=== PATIENT | female | born 1955 | race African-American/Black ===

== ENCOUNTER 2024-11-25 08:40 | Observation (INO) | payer OTHER ==
[2024-11-19 09:44] VITALS: BP 145/76; PULSE 77; RESP 17; TEMP 97.3
[2024-11-19 09:46] LABS: IMMATURE GRANULOCYTE ABSOLUTE 0.00 K/uL (0-1); NUCLEATED RED BLOOD CELLS 0.0 % (0.0-0.19); PLATELET COUNT (AUTO) 291 K/uL (130-400); RED BLOOD CELL COUNT(AUTO) 4.71 MIL/uL (4.00-5.50); RED CELL DISTRIBUTION WIDTH 13.8 % (11.0-15.5); WHITE BLOOD COUNT (AUTO) 4.0 K/uL (4.8-10.8)
[2024-11-19 10:08] LABS: APPEARANCE,URINE CLEAR (CLEAR); GLUCOSE, URINE (UA) NEGATIVE (NEGATIVE); LEUKOCYTE ESTERASE ,URINE NEGATIVE Leu/uL (NEGATIVE); NITRATE,URINE NEGATIVE (NEGATIVE); OCCULT BLOOD,URINE NEGATIVE (NEGATIVE)
[2024-11-19 10:10] LABS: ADD UA MICROSCOPIC NO
[2024-11-25] VITALS (24 sets, daily range): BP systolic 99–150; BP diastolic 44–76; PULSE 58–96; RESP 13–20; TEMP 97.5–98.5; O2SAT 92
[~2024-11-25] VITALS: Ht 170.2 cm; Wt 88.5 kg
[~2024-11-25 08:40] MED LIST: AMLO-915 PO; LOSA100T59 PO; NAPR220T57 PO; TYLENOL ARTHRITIS PO
[2024-11-25] MEDS: LACTATED RINGERS 1000ML 1,000 ML IV ONE (10:42)
[2024-11-25] MEDS: GABAPENTIN 300 MG CAPSULE ONE (11:48)
[2024-11-25] MEDS: FAMOTIDINE 20MG VIAL IV ONE (11:49)
[2024-11-25] MEDS ORDERED: LIDOCAINE PF 100MG/5ML (2%) SYRINGE 5ML ONE (12:00)
[2024-11-25] MEDS ORDERED: TRANEXAMIC ACID 1000MG/10ML ONE (13:07)
[2024-11-25] MEDS ORDERED: VANCOMYCIN 500MG+NS 100ML 100 ML IV ONE (13:07)
[2024-11-25] MEDS ORDERED: GLYCOPYRROLATE 0.2 MG/ML 5 ML VIAL ONE (15:53)
[2024-11-25] MEDS ORDERED: NEOSTIGMINE METHYLSULFATE 1MG/ML IV ONE (15:53)
[2024-11-25] MEDS ORDERED: CALCIUM CARB 500MG PO PRN (16:30)
[2024-11-25] MEDS ORDERED: PoTASSium chl 10% ELIXIR 20MEQ 20 MEQ/15 ML UDCUP PO PRN (16:30)
[2024-11-25] MEDS: 0.9%NACL 1000ML 1,000 ML IV SCH (16:30)
[2024-11-25] MEDS ORDERED: FERROUS FUMARATE 324 MG TABLET PO PRN (16:30)
[2024-11-25] MEDS ORDERED: PoTASSium chloRIDE 20MEQ ER 20 MEQ ERTAB PO PRN (16:30)
[2024-11-25] MEDS ORDERED: HYDROcodone/APAP 5/325 1 TAB TABLET PO PRN (16:30)
--- NOTE | 2024-11-25 16:35 | OP ---
Operative Note: DATE OF PROCEDURE: 11/25/24 SURGEON: ASHLEY BAHENA MD PACKAGING TECHNICIAN: [Mariano Blevins CFA] ANESTHESIA: [General anesthesia plus regional block] ANESTHESIOLOGIST/TURPENTINE FARMER: [Torin Palomino TURPENTINE FARMER] PREOPERATIVE DIAGNOSIS: [Left knee osteoarthritis] POSTOPERATIVE DIAGNOSIS: [Left knee osteoarthritis] IMPLANTS: [BIOMET VANGUARD. Femur 62.5 left PS. Tibia 71 fixed cruciate. Patella size 31 x 8 asymmetric. Tibial liner size 71/75 X 10 PS] PROCEDURE: [Left total knee arthroplasty] ESTIMATED BLOOD LOSS: [100 mL] INDICATIONS: [69-year-old female with history of pain to the left knee secondary to osteoarthritis that has a longer responded to conservative treatment. The patient is brought to the operating room for a total knee arthroplasty. Procedure understood, risks, benefits and possible complications and agreed signed the consent form.] DESCRIPTION OF PROCEDURE: [After adequate general anesthesia was achieved and regional block obtained the left lower extremity was prepped and draped in the usual manner previous placement of the tourniquet in the proximal thigh. The extremity was then elevated and exsanguinated with an Esmarch bandage and the tourniquet inflated to 250 mmHg the Esmarch band been then removed. With the knee in flexion a longitudinal incision was then made in the anterior aspect through the skin followed by dissection of the subcutaneous tissue. A paramedian approach was then made with the Bovie cautery cutting through the quadriceps tendon, medial patellar retinaculum and patellar tendon retinaculum. The retropatellar tendon fat was then excised and the soft tissue elements of the tibia were elevated subperiosteally and retractors were applied medially and laterally . The anterior and posterior cruciate ligaments were resected. With the use of a drill a starting hole was made in the distal femur entering the intramedullary canal and then after removal of the drill an intramedullary guide was inserted with a 5 degree valgus block that touched the distal femur and to this the distal femoral cutting guide was then applied anteriorly and was secured to the distal femur with the use of pins. The intramedullary guide was then removed and with the use of the oscillating saw we proceeded to resect the distal femur removing the fragments and the guide. The femoral sizer was then applied distally and drill holes were made removing the sizer and the 4-in-1 cutting block was then inserted and the anterior, posterior and chamfer cuts were made removing the fragments and the block. The PS cutting guide was then inserted and the intercondylar cut was made removing the fragment and the guide. The posterior cruciate ligament retractor was then inserted posterior to the tibia and this was brought forward proceeding then to apply the external tibial alignment guide and secured the proximal cutting guide to the tibia with the use of pins. With the use of the oscillating saw the proximal cut to the tibia tibia was made. The bone fragment was removed and the trial tibia plate was chosen. At this point the menisci were removed sharply and with the use of the curved osteotome the posterior osteophytes of the femur were removed. The trial components were then inserted at the femur and tibia with a trial tibial liner bringing the knee into extension noticing that the patient had a very stable knee in flexion, extension and with valgus and varus stress. The knee was maintained in extension and the patella was then addressed proceeding to measure its thickness and then with the use of the oscillating saw we removed eight mm from the articular surface and restored the height with application of a trial component after 3 peg holes were made. The patellofemoral ligament was removed and then the patellofemoral tracking was checked noticing to be normal. At this moment all the components were removed, the tibia after the metaphyseal defect was created and while cement was being mixed on the back table we proceeded to irrigate the joint with antibiotic solution and then cover the entry to the femoral canal with a bone plug. Once the cement was ready we proceeded to apply it first to the tibia surface inserting the final component and then to the femoral surface and inserted the final component removing the excess cement and then applying a trial liner bringing the knee into extension for compression. Then we proceeded to irrigate the patella surface and dried it applying then bone cement and the final patellar component was inserted and was secured with application of a clamp. The joint was irrigated with a warm diluted Betadine solution while the cement dried followed by irrigation with antibiotic solution. The trial liner was removed as well as the patellar clamp and we proceeded then to irrigate the posterior aspect of the joint to remove all the remaining debris and the final tibial liner was inserted and locked against the tibia. The range of motion was checked and noticed to be adequate with full extension and flexion, no laxity in valgus or varus stress and with adequate patellofemoral tracking. The patient had no anterior or posterior drawer. The tourniquet was then deflated and this was followed by hemostasis and the wound was then closed with approximation of the quadriceps tendon, patellar retinaculum and patellar tendon retinaculum with #1 Vicryl close stitches alternating with #1 Ethibond stitches, and closure of the subcutaneous tissue with 2-0 Monocryl inverted stitches and the skin was closed with 3-0 Monocryl subcuticularly. The wound was covered with a suction dressing followed by application of an Kane bandage for compression and the drapes were then removed transferring the patient to the hospital bed and taken to recovery room for follow-up by anesthesia. There were no complications during the procedure.] ASHLEY BAHENA MD Nov 25, 2024 16:35
[2024-11-25] MEDS: TRANEXAMIC ACID 1000MG/10ML ONE (17:14)
--- NOTE | 2024-11-25 18:00 | NUR ---
PATENT ARRIVED FROM PACU REPORT GIVEN TO MORRO HOWELL BY GIA COHN. PATIENT IS ALERT AND ORIENT, DENIES ANY DISCOMFORT AT THIS TIME. CALL LIGHT WITHIN REACH, BED AT LOWEST POSITION. PHYSICAL THERAPY AWARE OF PATIENT.
[2024-11-25] MEDS: FAMOTIDINE 20MG TAB PO SCH (20:33)
[2024-11-25] MEDS: HYDROcodone/APAP 5/325 1 TAB TABLET PO PRN (20:34)
[2024-11-26] VITALS (7 sets, daily range): BP systolic 115–143; BP diastolic 55–78; PULSE 71–92; RESP 18–20; TEMP 97.8–98.5; O2SAT 97
[2024-11-26 05:47] LABS: NUCLEATED RED BLOOD CELLS 0.0 % (0.0-0.19); PLATELET COUNT (AUTO) 242.0 K/uL (130-400); RED BLOOD CELL COUNT(AUTO) 3.9 MIL/uL (4.00-5.50); RED CELL DISTRIBUTION WIDTH 13.9 % (11.0-15.5); WHITE BLOOD COUNT (AUTO) 7.9 K/uL (4.8-10.8)
[2024-11-26 05:59] LABS: CREATININE 1.0 mg/dL (0.5-1.0); GLOMERULAR FILTR. RATE CALC 61.0 mL/min (>90); GLUCOSE,RANDOM 148.0 mg/dL (70-105); SODIUM SERUM 139.0 mmol/L (136-145); UREA NITROGEN, BLOOD 20.0 mg/dL (7-18)
--- NOTE | 2024-11-26 07:49 | PN ---
Ortho postop day one. This morning the patient is awake alert oriented seated in a chair enjoying her breakfast reporting adequate pain control in no acute distress. Vital signs have remained stable. She is afebrile. Voiding on her own without difficulty. Patient states she has not had a bowel movement for a couple of days we will give a one time dose of lactulose to see if this will help move her bowels. Laboratory results reviewed. Noted to have a drop in hemoglobin and hematocrit as expected after TKA. Patient is asymptomatic. We will continue to monitor and address per protocol as necessary. Performing incentive spirometry as instructed. Operative findings discussed with the patient. The Kane bandage his already been removed and the lorin dressing is flashing orange. We will address to nursing. Ice present to the operative extremity. Bilateral SCD stockings currently present. She is currently ambulating in the confines of her room and is pending further physical therapy this morning. [facility] Assessment: Status post left total knee arthroplasty. Asymptomatic acute postoperative blood loss anemia. Plan: Continue with Dr. Zamora TKA protocol and discharge planning. Asymptomatic acute postoperative blood loss anemia addressed per protocol as necessary Vitals/Labs Vital Signs Date Time Temp Pulse Resp B/P (MAP) Pulse Ox O2 Delivery O2 Flow Rate FiO2 11/26/24 04:00 98.2 79 20 122/69 93 Room Air 11/25/24 20:00 0 21 Laboratory Tests 11/26/24 04:57 Medications Current Medications Cefazolin Sodium 2 gm STK-MED ONCE .ROUTE; Start 11/25/24 at 09:11; Stop 11/25/24 at 09:11; Status DC Lactated Ringer's 1,000 ml @ As Directed STK-MED ONCE IV Last administered on 11/25/24at 10:42; Start 11/25/24 at 09:11; Stop 11/25/24 at 09:11; Status DC Gabapentin 300 mg STK-MED ONCE .ROUTE; Start 11/25/24 at 11:48; Stop 11/25/24 at 11:48; Status DC Acetaminophen 100 ml @ As Directed STK-MED ONCE .ROUTE; Start 11/25/24 at 11:48; Stop 11/25/24 at 11:49; Status DC Famotidine 20 mg STK-MED ONCE IV; Start 11/25/24 at 11:49; Stop 11/25/24 at 11:50; Status DC Ropivacaine 150 mg STK-MED ONCE .ROUTE; Start 11/25/24 at 11:58; Stop 11/25/24 at 11:58; Status DC Propofol 200 mg STK-MED ONCE IV; Start 11/25/24 at 12:00; Stop 11/25/24 at 12:00; Status DC Fentanyl Citrate 100 mcg STK-MED ONCE .ROUTE; Start 11/25/24 at 12:00; Stop 11/25/24 at 12:00; Status DC Lidocaine HCl 100 mg STK-MED ONCE .ROUTE; Start 11/25/24 at 12:00; Stop 11/25/24 at 12:01; Status DC Rocuronium [place] 50 mg STK-MED ONCE .ROUTE; Start 11/25/24 at 12:01; Stop 11/25/24 at 12:01; Status DC Cefazolin Sodium 1 gm STK-MED ONCE .ROUTE; Start 11/25/24 at 13:06; Stop 11/25/24 at 13:07; Status DC Vancomycin HCl 100 ml @ As Directed STK-MED ONCE IV; Start 11/25/24 at 13:07; Stop 11/25/24 at 13:07; Status DC Tranexamic Acid 1,000 mg STK-MED ONCE .ROUTE; Start 11/25/24 at 13:07; Stop 11/25/24 at 13:07; Status DC Ondansetron HCl 4 mg STK-MED ONCE .ROUTE; Start 11/25/24 at 13:48; Stop 11/25/24 at 13:49; Status DC Dexamethasone Sodium Phosphate 10 mg STK-MED ONCE .ROUTE; Start 11/25/24 at 13:49; Stop 11/25/24 at 13:49; Status DC Ketamine HCl 50 mg STK-MED ONCE .ROUTE; Start 11/25/24 at 14:29; Stop 11/25/24 at 14:29; Status DC Cefazolin Sodium 2 gm STK-MED ONCE IVPB Last administered on 11/25/24at 14:22; Start 11/25/24 at 14:22; Stop 11/25/24 at 14:42; Status DC Cefazolin Sodium 3 gm STK-MED ONCE IVPB Last administered on 11/25/24at 14:23; Start 11/25/24 at 14:23; Stop 11/25/24 at 14:53; Status DC Vancomycin HCl 500 mg STK-MED ONCE IJ Last administered on 11/25/24at 14:23; Start 11/25/24 at 14:23; Stop 11/25/24 at 14:53; Status DC Neostigmine Methylsulfate 10 mg STK-MED ONCE IV; Start 11/25/24 at 15:53; Stop 11/25/24 at 15:53; Status DC Glycopyrrolate 1 mg STK-MED ONCE .ROUTE; Start 11/25/24 at 15:53; Stop 11/25/24 at 15:54; Status DC Sodium Chloride 1,000 ml @ 100 mls/hr Q10H IV Last administered on 11/25/24at 16:30; Start 11/25/24 at 16:30; Stop 11/26/24 at 16:29 Polyethylene Glycol 17 gm DAILY PO; Start 11/26/24 at 09:00; Stop 12/26/24 at 08:59 Bisacodyl 10 mg DAILY PRN RC; Start 11/28/24 at 16:30; Stop 12/28/24 at 16:29 Ketorolac Tromethamine 15 mg Q6H PRN IV; Start 11/25/24 at 16:30; Stop 11/30/24 at 16:29 Famotidine 20 mg BID PO Last administered on 11/25/24at 20:33; Start 11/25/24 at 21:00; Stop 12/25/24 at 20:59 Ferrous Fumarate 324 mg DAILY PRN PO; Start 11/25/24 at 16:30; Stop 12/25/24 at 16:29 Temazepam 15 mg HS PRN PO; Start 11/25/24 at 16:30; Stop 12/25/24 at 16:29 Ondansetron HCl 4 mg Q6H PRN IVP; Start 11/25/24 at 16:30; Stop 12/25/24 at 16:29 Calcium Carbonate 500 mg Q12H PRN PO; Start 11/25/24 at 16:30; Stop 12/25/24 at 16:29 Diphenhydramine HCl 25 mg Q6H PRN IVP; Start 11/25/24 at 16:30; Stop 12/25/24 at 16:29 Cefazolin Sodium 2 gm Q8H IVPB Last administered on 11/26/24at 05:39; Start 11/25/24 at 21:30; Stop 11/26/24 at 05:31; Status DC Potassium Chloride 100 ml @ 100 mls/hr AD PRN IV; Start 11/25/24 at 16:30; Stop 12/25/24 at 16:29 Potassium Chloride 20 meq AD PRN PO; Start 11/25/24 at 16:30; Stop 12/25/24 at 16:29 Potassium Chloride 20 meq AD PRN PO; Start 11/25/24 at 16:30; Stop 12/25/24 at 16:29 Acetaminophen/ Hydrocodone Bitart Q4H PRN PO; Start 11/25/24 at 16:30; Stop 11/25/24 at 16:47; Status DC Apixaban 2.5 mg BID PO; Start 11/26/24 at 09:00; Stop 12/26/24 at 08:59 Acetaminophen/ Hydrocodone Bitart 1 tab Q4H PRN PO Last administered on 11/26/24at 05:39; Start 11/25/24 at 17:00; Stop 11/30/24 at 16:59 Acetaminophen/ Hydrocodone Bitart 2 tab Q4H PRN PO; Start 11/25/24 at 17:00; Stop 11/30/24 at 16:59 Fentanyl Citrate 100 mcg STK-MED ONCE .ROUTE Last administered on 11/25/24at 17:00; Start 11/25/24 at 16:49; Stop 11/25/24 at 16:49; Status DC Tranexamic Acid 1,000 mg STK-MED ONCE .ROUTE Last administered on 11/25/24at 17:14; Start 11/25/24 at 17:11; Stop 11/25/24 at 17:11; Status DC JARVIS LANGSTON NP Nov 26, 2024 07:49
[2024-11-26] MEDS: HYDROcodone/APAP 5/325 1 TAB TABLET PO PRN (08:54)
--- NOTE | 2024-11-26 09:14 | NUR ---
PT WAS FOUND SITTING ON HER CHAIR. PT C/O 11/27. PAIN MEDICATIONS WERE ADMINISTERED. PT IS A&OX4. L. KNEE DRESSING INTACT WITH JESUS WOUND VAC IN PLACE. NO DRAINAGE NOTED. NO BRUISING SCANT SWELLING AROUND KNEE AREA. EDUCATION WAS PROVIDED REGARDING INCENTIVE SPIROMETER USE. PT VERBALIZED UNDERSTANDING. NO S/S OF DISTRESS NOTED.
--- NOTE | 2024-11-26 12:34 | NUR ---
DC PLAN PATIENT LIVES ALONE. INDEPENDENT ABLE TO PERFORM ADL'S. PATIENT HAS NO SERVICES OR DME'S ONLY RAISED TOILET. URI SIGNED FOR [facility] AND [facility] [address]. Addendum: 11/26/24 at 1235 by SUJATA BRIDGES RN CM Amended: Links added.
--- NOTE | 2024-11-26 15:30 | NUR ---
Ortho Coordinator: Patient up to shower. Family at bedside.
--- NOTE | 2024-11-26 16:00 | NUR ---
PERFORMED DRESSING CHANGE. PT JESUS VAC KEPT VIBRATING WITH LEAK. REMOVED DRESSING. INCISION LOOKS CLEAN & DRY. NO BRUISING NOTED. APPLIED CLEAN JESUS DRESSING SEALED WITH JESUS VAC.
--- NOTE | 2024-11-26 18:00 | NUR ---
JESUS VAC WAS STILL VIBRATING SAYING LEAK DETECTED. MARY ALICE ORTHO COORDINATOR WALKED INTO THE ROOM AND ASSISTED WITH DRESSING REINFORCEMENT. JESUS VAC WAS STILL SAYING AIR LEAK DETECTED. MARY ALICE VERBALIZED SHE WOULD REACH OUT TO OR TO TRY AND REPLACE THE CURRENT JESUS VAC.
--- NOTE | 2024-11-26 19:00 | NUR ---
JESUS: JESUS VAC CHANGED AT THIS TIME DUE TO PREVIOUS WAS NOT WORKING PROPERLY. DR. BAHENA MADE AWARE OF DRESSING CHANGE.
--- NOTE | 2024-11-26 20:00 | NUR ---
PT LYING SEMI-FOWLERS POSITION. LEFT TKA DONE 11/25/24. DRESSING TO LEFT KNEE DRY/INTACT, JESUS VAC WORKING PROPERLY, ICE PACK IN PLACE, STRONG PULSE NOTED. PT VOICES NO PAIN/DISCOMFORTS TO LEFT KNEE AT THE MOMENT. RETURN DEMONSTRATION ON . BILATERAL SCDs IN PLACE. ENCOURAGED TO USE CALL LIGHT FOR ASSISTANCE, CALL ROBERTS WITHIN REACH, BED RAILS UP X 2, BED ALARM IN PLACE.
[2024-11-27] VITALS (17 sets, daily range): BP systolic 119–156; BP diastolic 38–82; PULSE 49–94; RESP 18–20; TEMP 98.1–98.8; O2SAT 96
[2024-11-27] MEDS: amLODIPine 5 MG TAB PO SCH (09:22)
--- NOTE | 2024-11-27 13:10 | NUR ---
Ortho Coordinator: Reinforced teaching. Patient up to chair. Pain controlled. JESUS dressing functioning, flashing green. Patient ambulating in room without assistance. Patient accepted to rehab, discussed next steps. No additional questions or concerns.
[2024-11-27] MEDS ORDERED: HYDR-4060 PO (16:36)
[2024-11-27] MEDS ORDERED: APIX2.5T PO (16:36)
--- NOTE | 2024-11-27 16:40 | DS ---
DISCHARGE SUMMARY [DATE OF ADMISSION: 11/25/2024 DATE OF DISCHARGE: 11/28/2024 FINAL DIAGNOSIS: LEFT KNEE OSTEOARTHRITIS SURGICAL PROCEDURES: LEFT TOTAL KNEE ARTHROPLASTY ON 11/25/2024 SUMMARY OF HISTORY AND PHYSICAL: THE PATIENT IS A 69 YEAR-OLD FEMALE WITH HISTORY OF SEVERE ARTHROSIS TO THE LEFT KNEE THAT HAS BEEN PRESENT FOR SEVERAL YEARS AND HAS BEEN TREATED CONSERVATIVELY WITH NO LONGER ADEQUATE RESPONSE TO TREATMENT. THE PATIENT IS BEING ADMITTED FOR TOTAL KNEE ARTHROPLASTY. PREVIOUS MEDICAL AND SURGICAL HISTORY: HYPERTENSION, OSTEOARTHRITIS. LEFT KNEE DIAGNOSTIC ARTHROSCOPY. FAMILY HISTORY: NO FAMILY HISTORY DOCUMENTED SOCIAL HISTORY: NEGATIVE FOR USE OF TOBACCO OR ALCOHOL. ALLERGIES: NKDA. REVIEW OF SYSTEM: NEGATIVE ON ADMISSION HOSPITAL COURSE: THE PATIENT WAS ADMITTED AND TAKEN TO THE OPERATING ROOM FOR A TOTAL KNEE ARTHROPLASTY, PROCEDURE THAT WENT UNEVENTFUL. POSTOPERATIVELY THE PATIENT REMAINED HEMODYNAMICALLY STABLE AND AFEBRILE. THE PATIENT RECEIVED ANTIBIOTIC AND ANTICOAGULATION PROPHYLAXIS PER PROTOCOL. THE PATIENT WAS EVALUATED BY PHYSICAL THERAPY AND STARTED REHABILITATION TREATMENT WITH AMBULATION WITH THE USE OF WALKER, WEIGHTBEARING TOLERATED, RANGE OF MOTION EXERCISES AND BED TRANSFERS. THE PATIENT WAS ALSO EVALUATED BY CASE MANAGEMENT AND ARRANGEMENTS WERE MADE FOR DISCHARGE. THE PATIENT TOLERATED DIET WELL. ON POSTOP DAY #2 ALL THE ARRANGEMENTS WERE COMPLETED. THE DRESSING WAS CHANGED AND THE WOUND WAS NOTED TO BE STABLE AND THE PATIENT WAS DISMISSED. CONDITION ON DISCHARGE: GOOD DISPOSITION: THE PATIENT WILL BE DISMISSED TO A LONG TERM FACILITY IN [facility]. FOLLOW-UP WILL BE DONE AT THE OFFICE IN 3 WEEKS. THE PATIENT IS TO CONTINUE WITH PHYSICAL THERAPY AND REHABILITATION AT FACILITY AND BE AMBULATORY WITH THE USE OF A WALKER, WEIGHT BEARING TOLERATED. CONTINUE TAKING PAIN MEDICATION INSTRUCTED WELL ANTICOAGULATION PROPHYLAXIS. CONTINUE WITH HOME MEDICATIONS ALSO INSTRUCTED AND CONTINUE WITH PRE ADMISSION DIET.] ASHLEY BAHENA MD ] ASHLEY BAHENA MD Nov 27, 2024 16:40
--- NOTE | 2024-11-27 16:48 | NUR ---
DC PLAN PATIENT ACCEPTED NOTIFIED: , NURSE, CHARGE NURSE, TEAMS, NURSING COMMUNICATION, DIRECTOR. Addendum: 11/27/24 at 1649 by SUJATA BRIDGES RN CM Amended: Links added.
--- NOTE | 2024-11-27 18:37 | PN ---
POSTOP DAY 2. Vital signs stable. Afebrile. The patient has done well with physical therapy and rehabilitation. Pain in the controlled. She did very well with physical therapy and rehabilitation. Patient accepted at the nursing facility in [place]. Awake, alert and oriented. In no respiratory distress. Dressing intact. Cleaned with no signs of bleeding. Distal neurovascular exam is normal. Assessment: Status left total knee arthroplasty. Plan: The patient will be dismissed in the morning. Paperwork and prescriptions done. Vitals/Labs Vital Signs Date Time Temp Pulse Resp B/P (MAP) Pulse Ox O2 Delivery O2 Flow Rate FiO2 11/27/24 16:00 98.6 66 18 137/38 98 Room Air 21 11/27/24 09:24 0 Medications Current Medications Cefazolin Sodium 2 gm STK-MED ONCE .ROUTE; Start 11/25/24 at 09:11; Stop 11/25/24 at 09:11; Status DC Lactated Ringer's 1,000 ml @ As Directed STK-MED ONCE IV Last administered on 11/25/24at 10:42; Start 11/25/24 at 09:11; Stop 11/25/24 at 09:11; Status DC Gabapentin 300 mg STK-MED ONCE .ROUTE; Start 11/25/24 at 11:48; Stop 11/25/24 at 11:48; Status DC Acetaminophen 100 ml @ As Directed STK-MED ONCE .ROUTE; Start 11/25/24 at 11:48; Stop 11/25/24 at 11:49; Status DC Famotidine 20 mg STK-MED ONCE IV; Start 11/25/24 at 11:49; Stop 11/25/24 at 11:50; Status DC Ropivacaine 150 mg STK-MED ONCE .ROUTE; Start 11/25/24 at 11:58; Stop 11/25/24 at 11:58; Status DC Propofol 200 mg STK-MED ONCE IV; Start 11/25/24 at 12:00; Stop 11/25/24 at 12:00; Status DC Fentanyl Citrate 100 mcg STK-MED ONCE .ROUTE; Start 11/25/24 at 12:00; Stop 11/25/24 at 12:00; Status DC Lidocaine HCl 100 mg STK-MED ONCE .ROUTE; Start 11/25/24 at 12:00; Stop 11/25/24 at 12:01; Status DC Rocuronium [place] 50 mg STK-MED ONCE .ROUTE; Start 11/25/24 at 12:01; Stop 11/25/24 at 12:01; Status DC Cefazolin Sodium 1 gm STK-MED ONCE .ROUTE; Start 11/25/24 at 13:06; Stop 11/25/24 at 13:07; Status DC Vancomycin HCl 100 ml @ As Directed STK-MED ONCE IV; Start 11/25/24 at 13:07; Stop 11/25/24 at 13:07; Status DC Tranexamic Acid 1,000 mg STK-MED ONCE .ROUTE; Start 11/25/24 at 13:07; Stop 11/25/24 at 13:07; Status DC Ondansetron HCl 4 mg STK-MED ONCE .ROUTE; Start 11/25/24 at 13:48; Stop 11/25/24 at 13:49; Status DC Dexamethasone Sodium Phosphate 10 mg STK-MED ONCE .ROUTE; Start 11/25/24 at 13:49; Stop 11/25/24 at 13:49; Status DC Ketamine HCl 50 mg STK-MED ONCE .ROUTE; Start 11/25/24 at 14:29; Stop 11/25/24 at 14:29; Status DC Cefazolin Sodium 2 gm STK-MED ONCE IVPB Last administered on 11/25/24at 14:22; Start 11/25/24 at 14:22; Stop 11/25/24 at 14:42; Status DC Cefazolin Sodium 3 gm STK-MED ONCE IVPB Last administered on 11/25/24at 14:23; Start 11/25/24 at 14:23; Stop 11/25/24 at 14:53; Status DC Vancomycin HCl 500 mg STK-MED ONCE IJ Last administered on 11/25/24at 14:23; Start 11/25/24 at 14:23; Stop 11/25/24 at 14:53; Status DC Neostigmine Methylsulfate 10 mg STK-MED ONCE IV; Start 11/25/24 at 15:53; Stop 11/25/24 at 15:53; Status DC Glycopyrrolate 1 mg STK-MED ONCE .ROUTE; Start 11/25/24 at 15:53; Stop 11/25/24 at 15:54; Status DC Sodium Chloride 1,000 ml @ 100 mls/hr Q10H IV Last administered on 11/25/24at 16: 30; Start 11/25/24 at 16:30; Stop 11/26/24 at 16:29; Status DC Polyethylene Glycol 17 gm DAILY PO Last administered on 11/27/24at 09:21; Start 11/26/24 at 09:00; Stop 12/26/24 at 08:59 Bisacodyl 10 mg DAILY PRN RC; Start 11/28/24 at 16:30; Stop 12/28/24 at 16:29 Ketorolac Tromethamine 15 mg Q6H PRN IV Last administered on 11/27/24at 12:11; Start 11/25/24 at 16:30; Stop 11/30/24 at 16:29 Famotidine 20 mg BID PO Last administered on 11/27/24at 09:22; Start 11/25/24 at 21:00; Stop 12/25/24 at 20:59 Ferrous Fumarate 324 mg DAILY PRN PO; Start 11/25/24 at 16:30; Stop 12/25/24 at 16:29 Temazepam 15 mg HS PRN PO; Start 11/25/24 at 16:30; Stop 12/25/24 at 16:29 Ondansetron HCl 4 mg Q6H PRN IVP; Start 11/25/24 at 16:30; Stop 12/25/24 at 16:29 Calcium Carbonate 500 mg Q12H PRN PO; Start 11/25/24 at 16:30; Stop 12/25/24 at 16:29 Diphenhydramine HCl 25 mg Q6H PRN IVP; Start 11/25/24 at 16:30; Stop 12/25/24 at 16:29 Cefazolin Sodium 2 gm Q8H IVPB Last administered on 11/26/24at 05:39; Start 11/25/24 at 21:30; Stop 11/26/24 at 05:31; Status DC Potassium Chloride 100 ml @ 100 mls/hr AD PRN IV; Start 11/25/24 at 16:30; Stop 12/25/24 at 16:29 Potassium Chloride 20 meq AD PRN PO; Start 11/25/24 at 16:30; Stop 12/25/24 at 16:29 Potassium Chloride 20 meq AD PRN PO; Start 11/25/24 at 16:30; Stop 12/25/24 at 16:29 Acetaminophen/ Hydrocodone Bitart Q4H PRN PO; Start 11/25/24 at 16:30; Stop 11/25/24 at 16:47; Status DC Apixaban 2.5 mg BID PO Last administered on 11/27/24at 09:22; Start 11/26/24 at 09:00; Stop 12/26/24 at 08:59 Acetaminophen/ Hydrocodone Bitart 1 tab Q4H PRN PO Last administered on 11/27/24at 18:01; Start 11/25/24 at 17:00; Stop 11/30/24 at 16:59 Acetaminophen/ Hydrocodone Bitart 2 tab Q4H PRN PO Last administered on 11/26/24at 22:43; Start 11/25/24 at 17:00; Stop 11/30/24 at 16:59 Fentanyl Citrate 100 mcg STK-MED ONCE .ROUTE Last administered on 11/25/24at 17:00; Start 11/25/24 at 16:49; Stop 11/25/24 at 16:49; Status DC Tranexamic Acid 1,000 mg STK-MED ONCE .ROUTE Last administered on 11/25/24at 17:14; Start 11/25/24 at 17:11; Stop 11/25/24 at 17:11; Status DC Losartan Potassium 100 mg PM PO Last administered on 11/26/24at 21:09; Start 11/26/24 at 21:00; Stop 12/26/24 at 20:59 Amlodipine Besylate 10 mg DAILY PO Last administered on 11/27/24at 09:22; Start 11/27/24 at 09:00; Stop 12/27/24 at 08:59 ASHLEY BAHENA MD Nov 27, 2024 18:37
--- NOTE | 2024-11-27 20:00 | NUR ---
ASSESSMENT./TEACHING PATIENT AWAKE, ALERT, OX3, NO SOB, NO C/O PAIN, ENCOURAGE DEEP BREATHING EXERCISES AND REINFORCE IS PRECIOUSLY DONE, TEACH PLAN OF CARE, PAIN MANAGEMENT, AND EXPECTED OUTCOME, PATIENT VERBALIZES UNDERSTANDING VIA TEACH BACK
[2024-11-28] VITALS: BP 116/53; PULSE 100; RESP 16; TEMP 98.4
[2024-11-28 03:04] VITALS: BP 129/61; PULSE 94; RESP 20; TEMP 98.1
[2024-11-28 08:00] VITALS: O2SAT 99
[2024-11-28 08:08] VITALS: BP 127/71; PULSE 101; RESP 16; TEMP 98.7
[2024-11-28 11:34] VITALS: BP 117/59; PULSE 88; RESP 18; TEMP 99.1
--- NOTE | 2024-11-28 12:30 | NUR ---
PATIENT DISCHARGED TO [facility] AND NURSING ID BAND NAD IV REMOVED. DISCHARGE INSTRUCTIONS EXPLAINED AND GIVEN TO PATIENT. PATIENT VERBALIZED UNDERSTANDING. BELONGINGS PACKED AND TAKEN BY PATIENT. WHEELED DOWN TO BY FACILITY TRANSPORTER TO FACILITY VAN.
== END 2024-11-28 12:45 ==
LOC: DAH 08:40 → DAHIP 08:41 → DAH 08:41 → 4BH 18:00
PROVIDERS: ADMIT Orthopaedic Surgery; ATTEND Orthopaedic Surgery
DX: M17.12 Unilateral primary osteoarthritis, left knee (principal); G89.18 Other acute postprocedural pain; I12.9 Hypertensive chronic kidney disease with stage 1 through stage 4 chronic kidney disease, or unspecified chronic kidney disease; N18.2 Chronic kidney disease, stage 2 (mild); D62 Acute posthemorrhagic anemia; E78.5 Hyperlipidemia, unspecified; E66.9 Obesity, unspecified; Z68.30 Body mass index [BMI] 30.0-30.9, adult; Z79.899 Other long term (current) drug therapy
CPT/HCPCS: 85025; 87086; 81003; 36415 ×2; 87641; 96365; 64447; 27447; 88311; 88304; 97161; 97116 ×6; 97530 ×9; 96366; 96375; 80048; 85027; 96376 ×2; G0378 ×68; A4223 ×2; A4663; J7120 ×2; J0690 ×6; J3490 ×6; J3010 ×2; J1100; J2003; J2704; J2405; J2710; J2795; J3370 ×2; A9272; A4649 ×3; A4930; C1713; C1776; A5120; A4215; A4222; A4221; A4216; J1885 ×4